=== PATIENT | female | born 1985 | race Caucasian/White ===

== ENCOUNTER 2018-06-11 06:22 | Day surgery (SDC) | payer OTHER ==
[2018-06-11] MEDS: BUPIVACAINE 0.5%/EPI (SDV) 30 ML INJ (09:14)
[2018-06-11] MEDS ORDERED: NEOSTIGMINE 3 MG/3 ML SYRINGE (09:16)
[2018-06-11] MEDS ORDERED: ROCURONIUM 50 MG INJ (09:16)
[2018-06-11] MEDS ORDERED: PROPOFOL 20 ML (09:16)
[2018-06-11] MEDS ORDERED: GLYCOPYRROLATE 0.4 MG INJ (09:16)
[2018-06-11] MEDS ORDERED: LIDOCAINE 2% (SDV) 5 ML INJ (09:16)
[2018-06-11] MEDS ORDERED: DEXAMETHASONE 4 MG/ML 5 ML INJ (09:17)
[2018-06-11] MEDS ORDERED: FAMOTIDINE 20 MG INJ (09:17)
[2018-06-11] MEDS ORDERED: ONDANSETRON 4 MG INJ (09:17)
[2018-06-11] MEDS ORDERED: CEFAZOLIN 1 GM INJ (09:31)
[2018-06-11] MEDS ORDERED: ONDANSETRON 4 MG INJ IV (10:00)
[2018-06-11] MEDS ORDERED: morphine (1 MG/ML) 10ML SYRINGE IV ×2 (10:00)
[2018-06-11] MEDS ORDERED: HYDROmorphONE 1 MG/5 ML IV SYRINGE IV ×2 (10:00)
[2018-06-11] MEDS ORDERED: DIPHENHYDRAMINE 50 MG INJ IV (10:00)
[2018-06-11] MEDS ORDERED: OXYCODONE/ACETAMINOPHEN (5/325) TAB PO ×2 (10:00)
[2018-06-11] MEDS ORDERED: LABETALOL HCL 20MG INJ IV (10:00)
[2018-06-11] MEDS ORDERED: FENTAnyl 50 MCG/ML VIAL IV ×2 (10:00)
[2018-06-11] MEDS ORDERED: ALBUTEROL 0.083% (NEB) 2.5 MG/3 ML AMP HHN (10:00)
[2018-06-11] MEDS: morphine 2 MG INJ IV (10:05)
[2018-06-11] MEDS: ONDANSETRON 4 MG INJ IV (10:05)
[2018-06-11] MEDS: MEPERIDINE 25 MG INJ IV (10:13)
[2018-06-11] MEDS: OXYCODONE/ACETAMINOPHEN (5/325) TAB PO ×2 (10:18→12:47)
== END 2018-06-11 12:53 | disposition home or self-care (01) ==
LOC: SDS 06:22
DX: K80.10 Calculus of gallbladder with chronic cholecystitis without obstruction (principal); E03.9 Hypothyroidism, unspecified; E66.9 Obesity, unspecified
CPT/HCPCS: 47562; 84703; 88304